=== PATIENT | female | born 1980 | race Two or more races ===

== ENCOUNTER 2024-09-13 09:05 | Outpatient (CLI) | payer OTHER | END 2024-09-13 09:14 | disposition home or self-care (01) | LOC: SONOGRAMA 09:05 | PROVIDERS: ATTEND Pathology Anatomic Pathology | DX: D34 Benign neoplasm of thyroid gland (principal); E07.89 Other specified disorders of thyroid; E04.9 Nontoxic goiter, unspecified ==